=== PATIENT | male | born 1980 | race Caucasian/White ===

== ENCOUNTER 2023-12-10 21:35 | Emergency (ER) | payer SELFPAY ==
[2023-12-10 21:39] VITALS: BP 128/86
--- NOTE | 2023-12-10 23:17 | ED.GENMED ---
History of Present Illness
<MAKENZIE Hopson - Last Filed: 12/10/23 23:37>
General
Chief Complaint: Eye Problems
Source: patient and spouse
Time Seen by Provider: 12/10/23 23:08
Travel History
Have you had any contact with someone who has COVID-19?: No
Do you have any symptoms of coronavirus? Fever > 100 degrees, chills, cough, shortness of breath, sore throat, loss of taste or smell, muscle aches, or headache?: No
History of Present Illness
History of Present Illness:
43 year old male with no significant past medical hx who presents with R eye with pain and redness that occurred at 2030 tonight after cutting tree branches. Pt was cutting branches at home tonight when twigs fell from the tree and struck him in the
eye. He was not wearing eye protection. He reports moderate pain and foreign body sensation. Denies blurry vision, double vision, dizziness, head ache. Tetanus not UTD. He does not wear corrective lenses.
Review of Systems
<MAKENZIE Hopson - Last Filed: 12/10/23 23:37>
Review of Systems
Allergies reviewed?: Yes
All Other Systems: ROS reviewed and negative except as documented in HPI and ROS
Constitutional: Reports no symptoms
EENT: Reports other (R eye pain, redness, foreign body sensation)
Respiratory: Reports no symptoms
Cardiac: Reports no symptoms
ABD/GI: Reports no symptoms
: Reports no symptoms
Musculoskeletal: Reports no symptoms
Skin: Reports no symptoms
Neurological: Reports no symptoms
Endocrine: Reports no symptoms
Hematologic/Lymphatic: Reports no symptoms
Psychiatric: Reports no symptoms
Phy Exam
<MAKENZIE Hopson - Last Filed: 12/10/23 23:37>
General Physical Exam
General Presentation: well appearing and no apparent distress
General age: appears stated age
General Skin: warm and dry
General Habitus: normal
General Mental: alert
General Hydration: appears well hydrated
Eye Exam
Eye Exam: PERRL and EOMI
Right 20/: 16
Left 20/: 16
Both 20/: 16
Refraction?: No
Cornea Exam: abrasion: Right (in sclera, medial to iris)
Type of Exam: fluorescein
Cardiovascular Exam
Cardiovascular Exam: regular rate/rhythm, no gallop and no murmur
Pulmonary Exam
Pulmonary Exam: lungs clear, no respiratory distress, no rales, no crackles, no rhonchi, no wheezing and no cough
Skin Exam
Skin Exam: normal color and warm/dry
Psychiatric Exam
Psychiatric Exam: normal mood/affect
Course
<MAKENZIE Hopson - Last Filed: 12/10/23 23:37>
Orders/Labs/Results
Orders:
Orders
12/10/23 23:31
Eye Procedures- Treatment ONCE
Location: Right Eye
Type of Procedure: Irrigate - NSS
Gentamicin [Genoptic 0.3% Eye Drops] See Dose Instructions OPHTH NOW STA
Tetanus/Diphth/Acelpertussis [Adacel] 0.5 ml IM .ONCE ONE
Vital Signs
Initial and Last Documented VS:
Initial Vital Signs
Temp Pulse Resp BP Pulse Ox
97.8 F 72 20 128/86 97
12/10/23 21:39 12/10/23 21:39 12/10/23 21:39 12/10/23 21:39 12/10/23 21:39
Last Documented Vital Signs
Temp Pulse Resp BP Pulse Ox
97.8 F 72 20 128/86 97
12/10/23 21:39 12/10/23 21:39 12/10/23 21:39 12/10/23 21:39 12/10/23 21:39
<Rosibel Curry DO - Last Filed: 12/11/23 00:10>
Orders/Labs/Results
Orders:
Orders
12/10/23 23:31
Eye Procedures- Treatment ONCE
Location: Right Eye
Type of Procedure: Irrigate - NSS
Gentamicin [Genoptic 0.3% Eye Drops] See Dose Instructions OPHTH NOW STA
Tetanus/Diphth/Acelpertussis [Adacel] 0.5 ml IM .ONCE ONE
Vital Signs
Initial and Last Documented VS:
Initial Vital Signs
Temp Pulse Resp BP Pulse Ox
97.8 F 72 20 128/86 97
12/10/23 21:39 12/10/23 21:39 12/10/23 21:39 12/10/23 21:39 12/10/23 21:39
Last Documented Vital Signs
Temp Pulse Resp BP Pulse Ox
97.8 F 72 20 128/86 97
12/10/23 21:39 12/10/23 21:39 12/10/23 21:39 12/10/23 21:39 12/10/23 21:39
<MAKENZIE Hopson - Last Filed: 12/10/23 23:37>
MDM/Problems Addressed
Differential Diagnosis Includes:
corneal abrasion, foreign body to eye
MDM/Problems Addressed:
43 year old male who presents with R eye pain and redness that began at 2030 tonight after cutting tree branches.
<MAKENZIE Hopson - Last Filed: 12/10/23 23:37>
*Critical Care Note
Total Time (30-74mins, 75-104mins- exclusive of procedures): Not Applicable
<Rosibel Curry DO - Last Filed: 12/11/23 00:10>
*Pulse Oximetry
Patient hypoxic: no
ED Attending Note
<MAKENZIE Hopson - Last Filed: 12/10/23 23:37>
-
Portions of this chart may have been created with voice recognition software.� Occasional wrong word or��sound alike� substitutions may have occurred due to the inherent limitations of voice recognition software.
<Rosibel Curry DO - Last Filed: 12/11/23 00:10>
ED Attending Note
Patient seen and examined by attending physician: Yes
I performed the substantive portion of visit, reviewed & personally made and approve the management plan that is documented in note by myself or CELINA.: Yes
I performed a history and physical exam of patient and discussed management with resident, I reviewed resident's note and agree with documented findings and plan of care.: Yes
ED Attending Note:
This is a 43-year-old primarily Lao-speaking gentleman who complains of right eye pain that began tonight while he was cutting down tree branches in his yard and a few branches fell and struck him in his right eye. He complains of foreign body
sensation and irritation medial aspect of the right thigh. He denies vision difficulty, denies headache, denies tearing. He does not wear contact lenses nor corrective lenses.
No past medical history. He takes no medicines on a daily basis. Unsure as to his last tetanus shot.
His is accompanying and is interpreting.
PHYSICAL EXAMINATION:
General: 43-year-old gentleman appears his stated age, bright and alert, pleasant, appears in no acute distress. is accompanying.
HEENT: The head is normocephalic. Pupils are equal and reactive to light, extraocular muscles intact. Lids intact. There is mild focal conjunctival injection medial aspect of the right eye. There is no tearing, no chemosis. Right eye
discomfort resolved after tetracaine instilled. Right eye examined with fluorescein stain and Hdez lamp reveals small conjunctival abrasion at the 3 o'clock position just medial to the cornea. The cornea itself is intact without abrasion. There
is no evidence of foreign body within the conjunctiva. There is no subconjunctival hemorrhage.
Visual acuity intact bilaterally.
Neuro: alert and oriented. no focal neurological deficits
Psychiatric: well kept. interactive and cooperative
Musculoskeletal: [No clubbing or cyanosis no edema. Peripheral pulses are full and equal. Nontender.]
Skin: Warm and dry, normal color. Good turgor.
Patient presents with focal trauma to right eye and exam notable for small conjunctival abrasion medial aspect of the right eye. Sclera and cornea are intact without abrasion.
There is no evidence of retained foreign body but will plan for copious irrigation.
Will update Tdap.
Will initiate a course of gentamicin ophthalmic drops.
Will refer to our free clinic for follow-up.
Return precautions discussed.
Discharge Plan
Departure
Patient Disposition: Home (Routine Discharge)
Date of Disposition: 12/11/23
Time of Disposition: 00:07
Patient with high blood pressure during this ER visit?: No
Condition: Good
Discharge Problem:
Abrasion of conjunctiva, right
Instructions: Eye Contusion (DC), How to Use Eye Drops, Tdap (Tetanus, Diphtheria, Pertussis) Vaccine CDC Vaccine Information Statement (VIS)
Prescriptions:
New
gentamicin 0.3 % drops
1 drp ophthalmic (eye) QID Qty: 5 0RF
Referrals:
[facility] - Call in 1-3 days for appt
UNKNOWN - PT DOES,NOT KNOW [Family Provider] -
Interventions
Interventions:
*Risk Screen - Suicide Last Done: 12/10/23 21:39
*General Assessment Last Done: 12/10/23 22:50
*Neglect/Abuse Screening Last Done: 12/10/23 21:39
ED- Fall Risk Assessment Last Done: 12/10/23 23:06
*ED COVID-19 Vaccine History Last Done: 12/10/23 22:50
Discharge Date and Time
Print Language: JORDANIAN
[2023-12-10] MEDS: ADACEL 0.5 ML IM (23:57)
[2023-12-10] MEDS: GENOPTIC 0.3% EYE DROPS 1 DROP OPHTH (23:59)
== END 2023-12-11 00:15 | disposition home or self-care (01) ==
LOC: EMR 21:35
PROVIDERS: EMERGENCY PHYSICIAN Emergency Medicine
DX: T15.01XA Foreign body in cornea, right eye, initial encounter (principal); W20.8XXA Other cause of strike by thrown, projected or falling object, initial encounter; Z23 Encounter for immunization
CPT/HCPCS: 99282; 90471; 90715